=== PATIENT | male | born 1985 | race Caucasian/White ===

== ENCOUNTER 2018-05-28 20:51 | Observation (INO) | payer BC ==
[2018-05-28 21:56] LABS: #Basophils 0.1 thou/uL (0.0-0.2); #Eosinphils 0.3 thou/uL (0.0-0.7); #Monocytes 0.6 thou/uL (0.11-0.59); #Neutrophils 4.3 thou/uL (1.40-6.50); %Basophils 1.3 % (0.0-1.0); %Eosinophils 4.1 % (0.0-10.0); %Monocytes 7.4 % (0.0-10.0); %Neutrophils 51.2 % (42.0-75.0); Mean Corpuscular HGB CONC 33.8 g/dL (32.0-36.0); Mean Corpuscular Hemoglobin 31.3 pg (27.0-31.0); Mean Corpuscular Volume 92.7 fL (78.0-98.0); Mean Platelet Volume 7.8 fL (7.4-10.4); Platelet Count 279 thou/uL (130-400); RBC Distribution Width 11.9 % (11.5-14.5); Red Blood Cell (RBC) Count 4.79 mill/uL (4.70-6.10); White Blood Cell (WBC) Count 8.3 thou/uL (4.8-10.8)
[2018-05-28 22:04] LABS: INR-International Normal Ratio 1.1; PTT 31.3 SEC (22.9-36.1); Prothrombin Time 13.9 SEC (12.0-14.7)
[2018-05-28] MEDS ORDERED: HYDROcodone/Acetaminophen 5/325 mg Tablet ONE (22:05)
[2018-05-28 22:20] LABS: ALT (SGPT) 25 U/L (8-55); AST (SGOT) 25 U/L (5-34); Albumin 4.6 g/dL (3.5-5.0); Alkaline Phosphatase 59 U/L (40-150); Anion Gap 14 mmol/L (10-20); BUN (Urea Nitrogen) 13 mg/dL (8.9-20.6); Bilirubin, Total 0.3 mg/dL (0.2-1.2); CK (CPK) 167 U/L (30-200); Calc. Creatinine Clearance 0 mL/min (70-130); Calcium 9.3 mg/dL (7.8-10.44); Carbon Dioxide 25 mmol/L (22-29); Chloride 105 mmol/L (98-107); Estimated GFR-MDRD 88; Globulin 3.3 g/dL (2.4-3.5); Glucose 101 mg/dL (70-105); Potassium 3.8 mmol/L (3.5-5.1); Protein, Total 7.9 g/dL (6.0-8.3); Sodium 140 mmol/L (136-145)
[2018-05-29] MEDS ORDERED: Ondansetron HCl/PF 4 MG/2 ML Vial IVP PRN (01:29)
[2018-05-29] MEDS ORDERED: Acetaminophen 325 MG TAB PO PRN (01:29)
[2018-05-29] MEDS ORDERED: Ondansetron ODT 4 MG TAB SL PRN (01:29)
[2018-05-29 02:39] VITALS: BMI 22.8
[2018-05-29 04:29] LABS: #Eosinphils 0.4 thou/uL (0.0-0.7); #Monocytes 0.6 thou/uL (0.11-0.59); %Basophils 0.5 % (0.0-1.0); %Eosinophils 4.4 % (0.0-10.0); %Lymphocytes 37.8 % (21.0-51.0); %Monocytes 7.6 % (0.0-10.0); %Neutrophils 49.7 % (42.0-75.0); Hemoglobin 14.1 g/dL (14.0-18.0); Mean Corpuscular HGB CONC 33.7 g/dL (32.0-36.0); Mean Corpuscular Hemoglobin 31.4 pg (27.0-31.0); Mean Corpuscular Volume 93.1 fL (78.0-98.0); Mean Platelet Volume 7.8 fL (7.4-10.4); Platelet Count 274 thou/uL (130-400); White Blood Cell (WBC) Count 8.1 thou/uL (4.8-10.8)
[2018-05-29 05:14] LABS: Anion Gap 13 mmol/L (10-20); BUN (Urea Nitrogen) 12 mg/dL (8.9-20.6); Calc. Creatinine Clearance 110 mL/min (70-130); Calcium 8.9 mg/dL (7.8-10.44); Carbon Dioxide 24 mmol/L (22-29); Chloride 104 mmol/L (98-107); Estimated GFR-MDRD Greater than 90; Glucose 89 mg/dL (70-105); Potassium 3.7 mmol/L (3.5-5.1); Sodium 137 mmol/L (136-145)
[2018-05-29] MEDS ORDERED: HYDROcodone/Acetaminophen 5/325 mg Tablet PO PRN ×2 (07:52)
[2018-05-29] MEDS ORDERED: Morphine 2 MG/ML SYRINGE SLOW IVP PRN (09:33)
[2018-05-29] MEDS ORDERED: Acetaminophen/Codeine 30-300mg Tablet PO PRN ×2 (09:53)
[2018-05-29 10:06] LABS: Platelet Count 284 thou/uL (130-400)
[2018-05-29 10:13] LABS: INR-International Normal Ratio 1.1; PTT 33.9 SEC (22.9-36.1); Prothrombin Time 13.9 SEC (12.0-14.7)
[2018-05-29] MEDS ORDERED: Adacel (T-DAP) 0.5 ML VIAL IM ONE (11:00)
--- NOTE | 2018-05-29 15:43 | CON ---
DATE OF CONSULTATION: 05/29/2018 We were asked by our hospitalist to see patient, he has snake bite to the medial aspect of his left foot at the base or nearby the great toe. He is doing okay. His foot hurts quite a bit. He is able to get up and move around. Swelling is mild, but the area is tender to palpation. No numbness and tingling. PAST MEDICAL HISTORY: Can all be gleaned from hospitalist note. PAST SURGICAL HISTORY: Can all be gleaned from hospitalist note. FAMILY HISTORY: Can all be gleaned from hospitalist note. MEDICATIONS: Can all be gleaned from hospitalist note. ALLERGIES: Can all be gleaned from hospitalist note. REVIEW OF SYSTEMS: No fever, chills, body aches, just pain in that left foot. Otherwise, he is a healthy individual. Rest of review of systems negative. PHYSICAL EXAMINATION: GENERAL: Well-nourished, well-developed male, alert, pleasant, in no acute distress. Speech Clear alert and oriented x3. HEENT: Normal exam. NECK: Supple, trachea midline. RESPIRATORY: No distress. EXTREMITIES: Upper extremities; equal size, shape, symmetry, normal bulk and tone. Lower extremities are also equal size, shape, symmetry, normal bulk and tone with the exception of left foot. He does have some medial edema and ecchymosis. Area is tender to palpation. He is able to move the foot well. Sensations are intact. DP, PT pulses are intact and symmetric. ASSESSMENT: Snake bite. PLAN: He has no obvious compartment syndrome right now. He is asking when he may return to work and we will leave this up to the hospitalist. If need be we will check on outpatient bear he is in the hospital. Otherwise, I do not think any surgical intervention is definitely needed at this time. We will follow him on an as needed basis while he is in the hospital. Instructed the nurses to call if there is any worsening of edema, ecchymosis or swelling. HELENA
[2018-05-29 15:44] VITALS: BP 157/97; TEMP 97.5
--- NOTE | 2018-05-29 16:38 | SS ---
PRIMARY CARE PROVIDER: Shabbir Lewis M.D. CHIEF COMPLAINT: Snake bite. HISTORY OF PRESENT ILLNESS: Mr. Norwood is a pleasant 33-year-old gentleman who was seen at [facility] on 05/29/2018. He reports that he was bitten on the left foot at 20:15 nicolle rs yesterday by a copperhead. He brought the snake in to confirm this. He complained of pain and sw elling in the area. Initially, the pain and swelling was progressively moving up the leg. He denied any neurologic symptoms. He reports the painful sensation as burning over the left foot, nonradiating, currently 2 out of 10, not accompanied by nausea or vomiting. He denies any lightheadedness. He denies any chest pain or s hortness of breath. REVIEW OF SYSTEMS: All other systems reviewed and found to be negative. MEDICAL HISTORY: None. SURGICAL HISTORY: None. SOCIAL HISTORY: The patient drinks 2-3 beers a day. He denies tobacco use or recreational drug use. FAMILY HISTORY: He denies any family history of premature coronary artery disease. ALLERGIES: No known drug allergies. CURRENT MEDICATIONS: None. PHYSICAL EXAMINATION: GENERAL: On examination, Mr. Norwood is awake and alert, not in acute distress. VITAL SIGNS: Blood pressure is 126/85, pulse 62, respiratory rate 14, and oxygen saturation 100% on room air. He is afebrile. EYES: No scleral icterus. No conjunctival pallor. ENT: Moist mucosal membranes, no oropharyngeal erythema or exudate. NECK: Supple, nontender, trachea is midline. RESPIRATORY: Accessory muscles of breathing are not active. Chest wall movements are symmetric bila terally. LUNGS: Clear to auscultation without wheeze, rhonchi or crepitations. CARDIOVASCULAR: S1 and S2 are heard, regular. Peripheral pulses are palpable. No carotid bruit, no pericardial rub. ABDOMEN: Soft, nontender, bowel sounds are heard, no hepatomegaly, no splenomegaly. NEUROLOGIC: Cranial nerves II-XII intact. Deep tendon reflexes are 2+. No focal neurologic deficits in the left lower extremity. MUSCULOSKELETAL: Power is 5/5 in all 4 extremities. Minimal swelling over the medial aspect of the left foot, decreasing in area from previous markings. SKIN: Bluish discoloration and fang jimenez over the medial aspect of the left foot. LYMPHATIC: No inguinal lymphadenopathy. PSYCHIATRIC: Normal mood, normal affect, patient is oriented to person, place, and time. IMAGING DATA AND LABORATORY DATA: Mr. Clark labs and investigations were reviewed. He had sinus bradycardia on electrocardiogram, no ST changes to suggest an acute coronary syndrome. He has normal white count, normal hemoglobin, normal platelet count, mildly decreased fibrinogen leve l of 252, unremarkable comprehensive metabolic profile. ASSESSMENT AND PLAN: Mr. Norwood is a pleasant 33-year-old gentleman who was seen at [facility] on 05/29/2018. His problem list includes: 1. Snake bite: Mr. Norwood sustained copperhead snake bite. He appears to be clinically improving. He will be admitted to the hospital in observation status and monitored. He has not received antiv enom and I will hold off on antivenom at this time since he appears to be clinically improving. 2. Sinus bradycardia: Mr. Clark heart rate is in the 150s. He will be monitored on telemetry mo [facility]. HOSPITAL COURSE: Mr. Norwood was monitored on telemetry, where his heart rate was between 50 and 60. He will be advised to follow up with his primary care provider for the same. Clinically, he improv ed, with decrease in the area of pain and swelling. He was also seen by [facility] a nd has been cleared for discharge, since there is no evidence of compartment syndrome. He is being d ischarged home with a prescription for Tylenol #3 one tablet every 8 hours as needed. He has been advised to follow up with his primary care provider in 1 days' time for further evaluatio n. Many thanks for allowing me to participate in your patient's care. Please feel free to contact me wi th any questions or concerns.
== END 2018-05-29 16:29 | disposition home or self-care (01) ==
LOC: ERS 20:51 → 2SW 23:39
PROVIDERS: ADMIT Hospitalist; ATTEND Hospitalist
DX: T63.061A Toxic effect of venom of other North and South American snake, accidental (unintentional), initial encounter (principal); M79.672 Pain in left foot; M79.89 Other specified soft tissue disorders; R00.1 Bradycardia, unspecified
CPT/HCPCS: 36415; 80048; 80053; 82550; 85025; 85384; 85610; 85730; 90715; 93005; G0378